=== PATIENT | male | born 1985 ===

== ENCOUNTER → 2019-03-02 | Outpatient (CLI) | payer OTHER ==
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
== END | disposition home or self-care (01) ==
LOC: EEVIPCON 08:00 → PNCL 08:11
PROVIDERS: ATTEND Anesthesiology
DX: G90.511 Complex regional pain syndrome I of right upper limb (principal); G43.909 Migraine, unspecified, not intractable, without status migrainosus; Z87.828 Personal history of other (healed) physical injury and trauma; Z79.899 Other long term (current) drug therapy
CPT/HCPCS: G0463

== ENCOUNTER → 2019-08-25 | Outpatient (CLI) | payer OTHER ==
[~2019-08-25] MED LIST: BACL10TA PO; DULO20CA PO; GABA300C18 PO; GABA600T7 PO; IBUP-1060 PO; MELO15TA6 PO; MIRT15TA90 PO; NAPR-514 PO; RIZA10TA PO; TOPI25TA7 PO; TRAZ-86 PO
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
== END | disposition home or self-care (01) ==
LOC: PNCL 07:27
PROVIDERS: ATTEND Anesthesiology
DX: G90.511 Complex regional pain syndrome I of right upper limb (principal)
CPT/HCPCS: G0463

== ENCOUNTER → 2020-12-31 | Outpatient (CLI) | payer OTHER ==
[~2020-12-31] MED LIST changes: +TRAZ-123 PO; -TRAZ-86 PO
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
== END | disposition home or self-care (01) ==
LOC: PNCL 07:38 → EEVIPCON 08:00
PROVIDERS: ATTEND Anesthesiology
DX: G90.511 Complex regional pain syndrome I of right upper limb (principal); Z79.899 Other long term (current) drug therapy
CPT/HCPCS: 99212; G0463

== ENCOUNTER → 2021-05-20 | Outpatient (CLI) | payer OTHER ==
[~2021-05-20] MED LIST changes: +DOCU50CA9 PO; +LIDOCAINE 1% PF 2 ML VIAL. ONE; +MELO7.5T5 PO; +MIRT-36 PO; +MULT-245 PO; +PREG300C PO; +PROP60CA36 PO; +SUMA50TA3 PO
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
--- NOTE | 2021-05-20 14:14 | PDOC4 ---
Procedure Note: ICD 10 Code: ICD 10 Code: G90.511 Procedure Note: Patient was consented for spinal cord stimulator temporary leads placement x2 with fluoroscopic guidance. Risks were discussed including but not limited to: Bleeding, infection, possibility of epidural hematoma and subsequent neurological compromise, dural puncture, headaches, spinal cord and/or nerve damage, and poor results regarding pain control. Patient understands and wished to proceed. Under sterile prep and drape patient in prone position using C-arm fluoroscopic guidance patient's lumbar spine was identified and vertebral levels were counted did put external marker on the T8 level. This time the lumbar spine was will ualized and using 1% lidocaine, the area over the L2-3 level was anesthetized and then using a 14-gauge Stockr needle with stylette was entered to the epidural space at the L1 -2 level using a paramedian approach to the right with preservative-free normal saline leyq-sf-symbatdwwa technique aspiration was noted to be negative and using direct fluoroscopy visualization spinal cord stimulator lead was then advanced without significant resistance in the midline and confirmed posterior with both AP and lateral views, and advanced to the superior endplate of the C2 vertebral level superimposed with the superior spinal cord stimulator electrode lead. Fluoroscopy was used in a lateral view to verify posterior placement in the epidural space at this point as well. At this time a second lead was then introduced in similar fashion at the L2-3 level and inserted and in the epidural space at the L1-2 level once again with preservative-free normal saline gait-gf-dhokceashb technique. Aspiration was again noted to be negative and using direct visualization with fluoroscopy second lumbar spinal cord stimulator lead was advanced without significant resistance in the midline with the superior electrode superimposed over the superior endplate of the C3 vertebral body. Lateral visualization was again confirmed with placement of the stimulator in the posterior epidural space. At this time the needles and stylette were removed with intermittent fluoroscopic visualization maintaining that the leads had not moved during this process and this was confirmed. This time 1% lidocaine was used to anesthetize the skin next to the insertion sites of the stimulator wires and using a 2-0 silk were then sutured in place. Mastisol and Tegaderm was then applied as well as reinforcing tape and gauze. Patient was transferred to the recovery area under his own power walking without difficulty and had no immediate complications from the procedure. Stimulation was then carried out with [employer] representatives. Patient will return to the clinic in approximately 1 week for removal of the temporary leads and reassessment of the patient's pain level. JUAN PABLO PAN MD May 20, 2021 14:14
== END ==
LOC: PNCL 12:17 → EEVIPCON 13:00
PROVIDERS: ATTEND Anesthesiology
DX: G90.511 Complex regional pain syndrome I of right upper limb (principal)
CPT/HCPCS: 63650; C1897; J3490

== ENCOUNTER → 2021-05-28 | Outpatient (CLI) | payer OTHER ==
[~2021-05-28] MED LIST changes: -LIDOCAINE 1% PF 2 ML VIAL. ONE
--- NOTE | 2021-05-28 08:15 | PDOC ---
Progress Note - Pain Clinic Date of Service: DOS: DATE: 05/28/21 TIME: 08:11 Diagnosis: Dx: Complex regional pain syndrome right upper extremity History or Present Illness: HPI: 35-year-old male returns for follow-up status post medical stimulator lead placement 8 days ago. Patient reports at least 60% improvement and is very pleased with the amount of relief he has received with his pain in his right upper extremity. Patient reports he has been increasing use of his right upper extremity is not feeling is cold as he usually does that saw some stinging tingling and stabbing in his right arm that can be radiating constant aching sharp and dull tight and shooting but much reduced from baseline. Patient has had this for just over a week now reports his pain at its worst is a 5 on the last week for an average 3 at its least and is a 3 today patient reports he is quite pleased and is very impressed that the pain was reduced significantly as much as it was and he was able to use his arm more noting that with some recent cold weather his arm is not as bothersome with the cold as it normally would be as well. Patient reports has been increasing activity with his arm range of motion has been better strength is been better he is sleeping better at night is doing all activities with much greater ease and comfort as well. Patient reports no new motor or sensory deficits or other complaints. Physical Exam: VS: Blood pressure is 124/75 pulse 61 respirations 18 temperature 98.4 F height is 6 foot weight is 241 pounds. PE: PHYSICAL EXAMINATION: GENERAL: The patient is awake, alert, oriented, appropriate, very pleasant in demeanor HEENT: Shows normocephalic, atraumatic. Extraocular movements are intact and symmetrical. Oral cavity: Mucous membranes moist and pink. Dentition is intact. NECK: Shows anterior throat supple without palpable lymphadenopathy noted. Swallow reflex symmetrical. CHEST: Shows normal on inspection. Breath sounds are clear bilaterally, no rales or rhonchi. HEART: Shows S1, S2 clear. No murmurs auscultated. ABDOMEN: Soft, nontender, nondistended, obese. No palpable organomegaly is n oted. BACK: Shows spine grossly in the midline. Normal-appearing cervical lordotic curvature. Cervical paraspinous muscles show symmetrical inspection, on palpation some moderate tenderness more diffusely in the inferior aspect of the cervical paraspinous posture. Patient cervical spine shows full rotation of motion as well as extension flexion without difficulty. There is slightly increased thoracic kyphosis, some minor flattening of the lumbar lordotic curvature. EXTREMITIES: Upper extremities show deep tendon reflexes 2+ in the biceps and triceps tendons. Motor exam is 3 on a scale of 5 with right emergency room clinician, biceps and tricep flexion and 5/5 on the left. Peripheral pulses are 2+ radial. No peripheral edema is noted bilaterally. Upper extremities are warm and dry. Right hand still show some muscle wasting in the extensor and flexor muscles as well as some decreased muscle tone in the forearm compared to the left. SKIN: Shows warm and dry, good turgor. No edema. No sores, rashes or bruising throughout. Procedure: Procedure: Options were discussed with the patient. Patient chart was reviewed as his current medication regimen updated current review of systems updated today as well. We will remove spinal cord stimulator leads x2 with tips intact. Site clean and dry no erythema no drainage no tenderness. Sterile bandage was applied after removal of the stimulator leads. We will make arrangements for permanent placement of spinal cord stimulator system. Medication Injected: Med Injected: None Condition at Discharge: Condition at Discharge: Condition at discharge is stable. JUAN PABLO PAN MD May 28, 2021 08:15
== END | disposition home or self-care (01) ==
LOC: PNCL 07:31 → EEVIPCON 07:40
PROVIDERS: ATTEND Anesthesiology
DX: G90.511 Complex regional pain syndrome I of right upper limb (principal); Z79.899 Other long term (current) drug therapy
CPT/HCPCS: 99212; G0463